=== PATIENT | female | born 1985 | race Caucasian/White ===

== ENCOUNTER → 2020-06-15 11:19 | Outpatient (CLI) | payer BC, MEDICAID, SELFPAY ==
[2020-05-28 14:39] VITALS: BMI 29.7
--- NOTE | 2020-06-15 11:53 | RAD_ITS ---
STUDY: HYSTEROSALPINGOGRAM. REASON FOR EXAM: Female, 34 years old. Tubal occlusion FLUOROSCOPY TIME (if supplied): ( 60 seconds ) minutes/seconds. 3 images were obtained. TECHNIQUE: A history of cephalogram was performed by the insurance attorney. Imaging was provided. COMPARISON: None. FINDINGS: Tubal ligation clips are seen in the left lower quadrant. The uterus is unremarkable. 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 Electronically Signed: Addy Wilson MD at 15:30 EDT , Service support ,
--- NOTE | 2020-06-15 12:55 | OP.PCM_ITS ---
Problem List (1) Sterilization Status: Acute Comment: hsg ordered, plan cycle day 7-14 (2) Tubal ligation status Status: Acute Comment: HSG ordered due to two clips seen Report of Operation Description of Surgical Findings:: Preop diagnosis: questionable sterilization Postop diagnosis: Same plus bilateral tubal occlusion Procedure: Hysterosalpingogram Surgeon: Shauna Saini Implantable devices: None Complications: None Findings: Bilateral tubal occlusion and normal uterine cavity, two filshie clips seen on left side of pelvis Operative details: Patient was taken to the x-ray room and was placed on the x- ray table and was in the dorsal lithotomy position. Speculum was placed in the vagina and the cervix prepped with Betadine and the HSG catheter was easily introduced into the uterus and speculum removed. Radiologist was brought in and while pushing radiopaque dye into the uterus via the HSG catheter the radiologist took multiple images and views and confirmed bilateral tubal occlusion was seen. No gross uterine filling defects or abnormalities were seen. All instruments removed from the vagina and the uterus without complication. Patient tolerated the procedure well. Multi Select Codes - Urinary/Genital Urinary/Genital CPT Codes: 89078 HSG/SIS
== END ==
PROVIDERS: PCP Family Medicine; Referring Provider Obstetrics & Gynecology; Visit Provider Obstetrics & Gynecology
DX: Z98.51 Tubal ligation status (principal); Z30.2 Encounter for sterilization
CPT/HCPCS: 58340; 74740; Q9967